=== PATIENT | male | born 1995 | race Asian ===

== ENCOUNTER 2019-04-10 20:34 | Emergency (ER) | payer OTHER ==
--- NOTE | 2019-04-10 21:08 | ED ---
Throat Pain/Nasal Congestion - HPI Summary HPI Summary: 24-year-old male presents with mouth lesion for the past week. He states he looked it up online and is concerned that he has cancer. He states he's never had this lesion before. Is not painful. He denies any fevers. No chills. she denies any dental pain. Does not currently have a dentist. Has history of anxiety and depression. He states that he had a panic attack about the potential cancer but is better now. No weight loss or night sweats. No lymphadenopathy. Denies any other symptoms. - History of Current Complaint Chief Complaint: EDGeneral Time Seen by Provider: 04/10/19 20:52 - Allergies/Home Medications Allergies/Adverse Reactions: Allergies Allergy/AdvReac Type Severity Reaction Status Date / Time No Known Allergies Allergy Verified 04/10/19 20:53 Home Medications: Home Medications NK [No Home Medications Reported] 04/10/19 [History Confirmed 04/10/19] PMH/Surg Hx/FS Hx/Imm Hx Endocrine/Hematology History: Denies: Hx Anticoagulant Therapy Respiratory History: Denies: Hx Asthma Infectious Disease History: No Infectious Disease History: Denies: Traveled Outside the [place] in Last 30 Days - Family History Known Family History: Positive: Non-Contributory - Social History Alcohol Use: Occasionally Substance Use Type: Reports: None Smoking Status (MU): Light Every Day Tobacco Smoker Review of Systems Negative: Fever Positive: Other - mouth lesion Negative: Chest Pain Negative: Shortness Of Breath Positive: Anxious All Other Systems Reviewed And Are Negative: Yes Physical Exam Triage Information Reviewed: Yes Vital Signs On Initial Exam: Initial Vitals Temp Pulse Resp BP Pulse Ox 98.3 F 70 16 100/63 97 04/10/19 20:35 04/10/19 20:35 04/10/19 20:35 04/10/19 20:35 04/10/19 20:35 Vital Signs Reviewed: Yes Appearance: Positive: Well-Appearing Skin: Positive: Warm, Dry Head/Face: Positive: Normal Head/Face Inspection Eyes: Positive: Normal, EOMI, ELVIRA, Conjunctiva Clear ENT: Positive: Normal ENT inspection, Pharynx normal, TMs normal Dental: Positive: Other - erythematous lesion with small amount of white on left side of mouth. Negative: Percussion Tenderness @, Gross Decay/Caries @, Dental Fracture @, Abscess @, Cellulitis @ Respiratory/Lung Sounds: Positive: Clear to Auscultation, Breath Sounds Present Cardiovascular: Positive: Normal, RRR Abdomen Description: Positive: Nontender, Soft Bowel Sounds: Positive: Present Musculoskeletal: Positive: Normal Neurological: Positive: Normal Psychiatric: Positive: Normal Procedures - Sedation Patient Received Moderate/Deep Sedation with Procedure: No Diagnostics - Vital Signs Vital Signs Temp Pulse Resp BP Pulse Ox 04/10/19 20:49 64 100/63 97 04/10/19 20:42 73 97 04/10/19 20:35 98.3 F 70 16 100/63 97 - Laboratory Lab Statement: Any lab studies that have been ordered have been reviewed, and results considered in the medical decision making process. EENT Course/Dx - Course Course Of Treatment: 24-year-old male presents with mouth lesion for the past week. He states he looked it up online and is concerned that he has cancer. He states he's never had this lesion before. Is not painful. He denies any fevers. No chills. she denies any dental pain. Does not currently have a dentist. Has history of anxiety and depression. He states that he had a panic attack about the potential cancer but is better now. No weight loss or night sweats. No lymphadenopathy. Denies any other symptoms. On exam has erythematous lesion with trace amount of white in mouth could be canker sore vs irritation. Will follow up with dentist. Patient understands and agrees. - Differential Diagnoses Differential Diagnoses: Other - canker sore, hsv, anxiety - Diagnoses Provider Diagnoses: Mouth lesion, Anxiety Discharge ED - Sign-Out/Discharge Documenting (check all that apply): Patient Departure - Discharge Plan Condition: Good Disposition: HOME Referrals: [facility] [Outside] Additional Instructions: follow up with dentist establish care with primary practice good oral hygiene by brushing teeth and using floss Return to ED if develop any new or worsening symptoms - Billing Disposition and Condition Condition: GOOD Disposition: Home
--- OUTSIDE RECORDS SUMMARY | 2019-04-10 21:16 | XMS REPORT | Summary of Care ---
:1995 Author Organization [facility] Address [address] [place] [address] Care Team Providers Name Role Phone None, [place] Primary Care Provider Unavailable Reason for Visit Reason Comments Congestion sore throat, nasal congestion , mild body aches, and cough for 5 days. states sore throat is abit better, still slight cough, and chest congestion Encounter Details Date Type Department Care Team Description 02/27/2019 Office Visit [place] Jessica Powers, Cold virus (Primary Practice [facility]) [address] [place] [address] [place] [address] [phone] Allergies No Known Allergiesdocumented as of this encounter (statuses as of 02/27/2019) Medications Medication Sig Dispensed Refills Start Date End Date Status [id number] Take by mouth. 0 Active (DAYQUIL PO) documented as of this encounter (statuses as of 02/27/2019) Active Problems No known active problemsdocumented as of this encounter (statuses as of 2018) Social History Tobacco Use Types Packs/Day Years Used Date Current Every Day Smoker Smokeless Tobacco: Never Used Alcohol Use Drinks/Week oz/Week Comments Not Currently Sex Assigned at Date Recorded Not on file Job Start Date Occupation Industry Not on file Not on file Not on file Travel History Travel Start Travel End No recent travel history available. documented as of this encounter Last Filed Vital Signs Vital Sign Reading Time Taken Comments Blood Pressure 118/78 02/27/2019 10:42 AM EDT Pulse 72 02/27/2019 10:42 AM EDT Temperature 36.6 02/27/2019 10:42 AM EDT C (97.8 F) Respiratory Rate - - Oxygen Saturation 97% 02/27/2019 10:42 AM EDT Inhaled Oxygen Concentration - - Weight 51.7 kg (114 lb) 02/27/2019 10:42 AM EDT Height 160 cm (5' 2.99") 02/27/2019 10:42 AM EDT Body Mass Index 20.2 02/27/2019 10:42 AM EDT documented in this encounter Patient Instructions Patient InstructionsJessica Gilmore PA-C - 02/27/2019 11:00 AM EDTContinue with OTC cold/sinus meds and expectorant Avoid creamy foods and drink Rest, gargle with warm salt water Push water, soup, juice, tea with honey/lemon OTC Tylenol/Ibuprofen for fever/pain No smoking Call if not improving or with any questions or concerns documented in this encounter Progress Notes Jessica Gilmore PA-C - 02/27/2019 11:00 AM EDT PATIENT: Lida Shell : 1995 DATE OF SERVICE: 02/27/2019 REFERRING PRACTITIONER: Michael PRIMARY CARE PROVIDER: None, [place] NEW PATIENT -- CHOOSE A PCP -- going to [place] for masters -- from [place] CHIEF COMPLAINT: Chief Complaint Patient presents with Congestion sore throat, nasal congestion , mild body aches, and cough for 5 days. states sore throat is abit better, still slight cough, and chest congestion Subjective HISTORY OF PRESENT ILLNESS: Lida Shell is a 24-y.o. male who presents with sore throat, nasal congestion, coughing, body aches x 5 days Sore throat and body aches is better today Has been taking OTC bolivian dayquil and expectorant Denies fever, chills, nausea, vomiting, diarrhea, chest pains, SOB vaping juule -- Not every day Smoking 10 cigarettes daily No past medical history on file. No past surgical history on file. No family history on file. Current Outpatient Medications Medication Sig [id number]-[id number] (DAYQUIL PO) Take by mouth. No current facility-administered medications for this visit. No Known Allergies Social History Socioeconomic History Marital status: Single Spouse name: Not on file Number of children: Not on file Years of education: Not on file Highest education level: Not on file Occupational History Not on file Social Needs Financial resource strain: Not on file Food insecurity: Worry: Not on file Inability: Not on file Transportation needs: Medical: Not on file Non-medical: Not on file Tobacco Use Smoking status: Current Every Day Smoker Smokeless tobacco: Never Used Substance and Sexual Activity Alcohol use: Not Currently Drug use: Never Sexual activity: Not on file Lifestyle Physical activity: Days per week: Not on file Minutes per session: Not on file Stress: Not on file Relationships Social connections: Talks on phone: Not on file Gets together: Not on file Attends baptism service: Not on file Active member of club or organization: Not on file Attends meetings of clubs or organizations: Not on file Relationship status: Not on file Intimate partner violence: Fear of current or ex partner: Not on file Emotionally abused: Not on file Physically abused: Not on file Forced sexual activity: Not on file Other Topics Concern Not on file Social History Narrative Not on file REVIEW OF SYSTEMS: Skin: negative skin lesions Eyes: negative visual blurring Ears/Nose/Throat: positive rhinorrhea, sore throat, sinus pressure, post nasal drip Respiratory: positive cough Cardiovascular: negative chest pain Gastrointestinal: negative abdominal pain, constipation, diarrhea, nausea or vomiting Genitourinary: negative burning on urination, dysuria Musculoskeletal: negative arthritis/joint pain Neurologic: negative numbness or tingling of feet or hands Psychiatric: negative anxiety Hematologic/Lymphatic/Immunologic: negative allergies Endocrine: negative diabetes or hot flashes/sweats Objective PHYSICAL EXAMINATION: VITALS: BP 118/78 (BP Location: Right arm, Patient Position: Sitting) | Pulse 72 | Temp 97.8 F (36.6 C) | Ht 5' 2.99" (1.6 m) | Wt 114 lb (51.7 kg ) | SpO2 97% | BMI 20.20 kg/m Body mass index is 20.2 kg/m. General appearance: alert, mild distress, cooperative, oriented times 3 Skin: Skin color, texture, turgor normal. No rashes or lesions. Head: Normocephalic. No masses, lesions, tenderness or abnormalities Eyes: conjunctivae/corneas clear. PERRL, EOM's intact. Ears: TMs and canals normal bilaterally Nose/Sinuses: mucosa normal, no rhinorrhea Oropharynx: positive findings: mild oropharyngeal erythema, post nasal drip present Neck: Neck supple, FROM. No cervical or supraclavicular adenopathy. Lungs: Lungs clear. Chest symmetrical. Normal breath sounds. Heart: RRR. No murmur, clicks or gallops. No peripheral edema . IMPRESSION: ICD-9-CM ICD-10-CM 1. Cold virus 460 J00 Plan PLAN: Continue with OTC cold/sinus meds and expectorant Avoid creamy foods and drink Rest, gargle with warm salt water Push water, soup, juice, tea with honey/lemon OTC Tylenol/Ibuprofen for fever/pain No smoking Call if not improving or with any questions or concerns Patient will choose PCP and make appointment to establish Author: Jessica Gilmore PA-C 02/27/2019 10:49 documented in this encounter Plan of Treatment Health Maintenance Due Date Last Done Comments PNEUMOCOCCAL 0-64 YRS (1 of - 2001 PPSV23) DEPRESSION SCREENING 2007 HIV SCREENING 2010 INFLUENZA VACCINE (#1) 2019 HPV IMMUNIZATION SERIES Aged Out No longer eligible based on patient's age to complete this topic MENINGOCOCCAL VACCINE IMM Aged Out No longer eligible based on patient's age to complete this topic documented as of this encounter Results Not on filedocumented in this encounter Visit Diagnoses Diagnosis Cold virus - Primary Acute nasopharyngitis (common cold) documented in this encounter Insurance Payer Benefit Plan / Subscriber ID Effective Dates Phone Address Type Group [facility] xxxxxxx 2019-Present [facility] documented as of this encounter
[2019-04-10 21:24] VITALS: BP 93/55
== END 2019-04-10 21:23 | disposition home or self-care (01) ==
LOC: ED 20:34
DX: K13.70 Unspecified lesions of oral mucosa (principal); F41.9 Anxiety disorder, unspecified; F17.210 Nicotine dependence, cigarettes, uncomplicated
CPT/HCPCS: 99281